=== PATIENT | female | born 2000 | race Caucasian/White ===

== ENCOUNTER 2021-11-18 16:08 | Emergency (ER) | payer BC ==
[~2021-11-18] VITALS: Ht 165.1 cm; Wt 63.5 kg
--- NOTE | 2021-11-18 16:23 | ED Chest Pain ---
General Chief Complaint: Chest Pain Stated Complaint: CHEST PAIN Source: patient Exam Limitations: no limitations History of Present Illness Date Seen by Provider: Nov 18, 2021 Time Seen by Provider: 16:20 Initial Comments To ER by private vehicle with reports of sharp central lower chest pain that radiates inferiorly down to the xiphoid process. This is a sharp shooting pain and it was initially worsened by deep breathing however the pain has become more constant. She was seen at an urgent care and [facility] yesterday with normal labs EKG and chest x-ray she states. This seemed to begin on 11/15/2021 after carrying some heavy items. No fevers chills or cough. She does have associated shortness of breath. Timing/Duration: 2-3 days Severity/Quality: sharp Location: central Radiation: no radiation Activities at Onset: none ASA po READING INTERVENTIONIST: No NTG SL READING INTERVENTIONIST: No Allergies and Home Medications Allergies Coded Allergies: No Known Drug Allergies (Unverified , 11/18/21) Patient Home Medication List Home Medication List Reviewed: Yes Review of Systems Review of Systems Constitutional: see HPI EENTM: No Symptoms Reported Respiratory: See HPI, Shortness of Air Cardiovascular: See HPI, Chest Pain Genitourinary: No Symptoms Reported Musculoskeletal: no symptoms reported Skin: no symptoms reported Psychiatric/Neurological: No Symptoms Reported Endocrine: No Symptoms Reported Physical Exam Vital Signs Vital Signs - First Documented 11/18/21 16:15 Temp 37.2 Pulse 77 Resp 22 B/P (MAP) 119/78 (92) O2 Delivery Room Air Capillary Refill : Height, Weight, BMI Height: '" Weight: lbs. oz. kg; BMI Method: General Appearance: No Apparent Distress, WD/WN, Other (Alert and oriented no distress oxygen saturation 99% on room air heart rate 88 sinus.) Neck: Full Range of Motion, Normal Inspection Respiratory: Normal Breath Sounds, No Accessory Muscle Use, No Respiratory Dist ress Cardiovascular: Regular Rate, Rhythm, Normal Peripheral Pulses Gastrointestinal: Normal Bowel Sounds, Non Tender, Soft Extremity: Normal Capillary Refill, Normal Inspection Neurologic/Psychiatric: Alert, Oriented x3 Skin: Normal Color, Warm/Dry Progress/Results/Core Measures Results/Orders Lab Results Laboratory Tests Test 11/18/21 16:25 Range/Units White Blood Count 5.1 4.3-11.0 10^3/uL Red Blood Count 5.12 H 3.80-5.11 10^6/uL Hemoglobin 14.6 11.5-16.0 g/dL Hematocrit 44 35-52 % Mean Corpuscular Volume 85 80-99 fL Mean Corpuscular Hemoglobin 29 25-34 pg Mean Corpuscular Hemoglobin Concent 34 32-36 g/dL Red Cell Distribution Width 11.2 10.0-14.5 % Platelet Count 317 130-400 10^3/uL Mean Platelet Volume 9.5 9.0-12.2 fL Immature Granulocyte % (Auto) 0 % Neutrophils (%) (Auto) 70 42-75 % Lymphocytes (%) (Auto) 21 12-44 % Monocytes (%) (Auto) 5 0-12 % Eosinophils (%) (Auto) 3 0-10 % Basophils (%) (Auto) 0 0-10 % Neutrophils # (Auto) 3.6 1.8-7.8 10^3/uL Lymphocytes # (Auto) 1.1 1.0-4.0 10^3/uL Monocytes # (Auto) 0.3 0.0-1.0 10^3/uL Eosinophils # (Auto) 0.2 0.0-0.3 10^3/uL Basophils # (Auto) 0.0 0.0-0.1 10^3/uL Immature Granulocyte # (Auto) 0.0 0.0-0.1 10^3/uL D-Dimer 0.40 0.00-0.49 UG/ML Sodium Level 139 135-145 MMOL/L Potassium Level 3.4 L 3.6-5.0 MMOL/L Chloride Level 104 98-107 MMOL/L Carbon Dioxide Level 23 21-32 MMOL/L Anion Gap 12 5-14 MMOL/L Blood Urea Nitrogen 8 7-18 MG/DL Creatinine 1.10 0.60-1.30 MG/DL Estimat Glomerular Filtration Rate 74 BUN/Creatinine Ratio 7 Glucose Level 85 70-105 MG/DL Calcium Level 9.7 8.5-10.1 MG/DL Corrected Calcium 9.4 8.5-10.1 MG/DL Total Bilirubin 0.4 0.1-1.0 MG/DL Aspartate Amino Transf (AST/SGOT) 17 5-34 U/L Alanine Aminotransferase (ALT/SGPT) 15 0-55 U/L Alkaline Phosphatase 60 40-136 U/L Troponin I < 0.028 <0.028 NG/ML C-Reactive Protein High Sensitivity 0.29 0.00-0.50 MG/DL B-Type Natriuretic Peptide 48.3 <100.0 PG/ML Total Protein 7.6 6.4-8.2 GM/DL Albumin 4.4 3.2-4.5 GM/DL Serum Test, Qualitative NEGATIVE NEGATIVE My Orders Orders - EYAD MONTE APRN Cbc With Automated Diff (11/18/21 16:19) Comprehensive Metabolic Panel (11/18/21 16:19) Hcg,Qualitative Serum (11/18/21 16:19) Ed Iv/Invasive Line Start (11/18/21 16:19) Fibrin Degradation Products (11/18/21 16:19) Hs C Reactive Protein (11/18/21 16:19) Bnp Best (11/18/21 16:19) Troponin I [place] (11/18/21 16:19) Ketorolac Injection (Toradol Injection) (11/18/21 16:30) Medications Given in ED Current Medications Medications Dose Ordered Sig/Roxie Route Start Time Stop Time Status Last Admin Dose Admin Ketorolac Tromethamine 15 mg ONCE ONCE IVP 11/18/21 16:30 11/18/21 16:31 DC 11/18/21 16:30 15 MG Vital Signs/I&O 11/18/21 11/18/21 16:15 16:42 Temp 37.2 37.2 Pulse 77 77 Resp 22 B/P (MAP) 119/78 (92) 119/78 O2 Delivery Room Air Departure Impression Primary Impression: Chest pain Disposition: 01 HOME, SELF-CARE Condition: Stable Departure-Patient Inst. Decision time for Depature: 17:32 Patient Instructions: Chest Pain (DC) Add. Discharge Instructions: 1. Tylenol and motrin for pain control. 2. return to ER for any concerns All discharge instructions reviewed with patient and/or family. Voiced understan isaias. EYAD MONTE APRN Nov 18, 2021 16:23
[2021-11-18] MEDS ORDERED: KETOROLAC 30 MG/ML VIAL IVP ONE (16:30)
[2021-11-18 16:40] LABS: BASOPHILS % (AUTO) 0 % (0-10); EOSINOPHILS # (AUTO) 0.2 10^3/uL (0.0-0.3); EOSINOPHILS % (AUTO) 3 % (0-10); HEMATOCRIT 44 % (35-52); HEMOGLOBIN 14.6 g/dL (11.5-16.0); LYMPHOCYTES # (AUTO) 1.1 10^3/uL (1.0-4.0); LYMPHOCYTES % (AUTO) 21 % (12-44); MEAN CORPUSCULAR HEMOGLOBIN 29 pg (25-34); MEAN CORPUSCULAR HGB CONC 34 g/dL (32-36); MEAN CORPUSCULAR VOLUME 85 fL (80-99); MEAN PLATELET VOLUME 9.5 fL (9.0-12.2); MONOCYTES # (AUTO) 0.3 10^3/uL (0.0-1.0); MONOCYTES % (AUTO) 5 % (0-12); NEUTROPHILS # (AUTO) 3.6 10^3/uL (1.8-7.8); NEUTROPHILS % (AUTO) 70 % (42-75); PLATELET COUNT 317 10^3/uL (130-400); WHITE BLOOD COUNT 5.1 10^3/uL (4.3-11.0)
[2021-11-18 16:45] LABS: ALBUMIN 4.4 GM/DL (3.2-4.5); CHLORIDE 104 MMOL/L (98-107); POTASSIUM 3.4 MMOL/L (3.6-5.0); SODIUM 139 MMOL/L (135-145)
[2021-11-18 16:46] LABS: CALCIUM 9.7 MG/DL (8.5-10.1)
[2021-11-18 16:47] LABS: GLUCOSE 85 MG/DL (70-105); TOTAL PROTEIN 7.6 GM/DL (6.4-8.2)
[2021-11-18 16:48] LABS: CARBON DIOXIDE 23 MMOL/L (21-32)
[2021-11-18 16:49] LABS: BILIRUBIN,TOTAL 0.4 MG/DL (0.1-1.0)
[2021-11-18 16:51] LABS: ALKALINE PHOSPHATASE 60 U/L (40-136); GFR ESTIMATED 74
[2021-11-18 16:52] LABS: BUN/CREATININE RATIO 7
[2021-11-18 16:54] LABS: ALANINE AMINOTRANSFERASE 15 U/L (0-55)
--- NOTE | 2021-11-18 17:50 | Diagnostic Imaging Report ---
INDICATION: Chest pain. TIME OF EXAM: 5:50 p.m. COMPARISON: No prior studies are available for comparison. FINDING: The heart size is normal. The pulmonary vascularity is unremarkable. The lungs are clear. No infiltrate, effusion or pneumothorax is detected. IMPRESSION: No acute cardiopulmonary process is detected. Dictated by: Dictated on workstation # [id number]
[2021-11-18 18:32] VITALS: BP 114/93
== END 2021-11-18 18:30 | disposition home or self-care (01) ==
LOC: ER 16:12
DX: R07.9 Chest pain, unspecified (principal)
CPT/HCPCS: 36415; 71045; 80053; 83880; 84484; 84703; 85025; 85379; 86141; 93005